=== PATIENT | female | born 1995 | race Caucasian/White ===

== ENCOUNTER 2017-03-04 15:37 | Inpatient (IN) | payer MEDICAID ==
[2017-03-04] MEDS: Lactated Ringers 1,000 ML IV SCH ×3 (15:58→17:59)
[2017-03-04] MEDS ORDERED: Lidocaine 1% 50 ML MDV INJECT PRN (16:02)
[2017-03-04] MEDS ORDERED: Misoprostol 200 MCG Tab PO PRN (16:02)
[2017-03-04] MEDS ORDERED: Sodium Chloride 0.9% 2.5 ML Syringe FLUSH PRN (16:02)
[2017-03-04] MEDS ORDERED: Butorphanol 1 MG/ML SDV IVPUSH PRN (16:02)
[2017-03-04] MEDS ORDERED: Nalbuphine 10 MG/1 ML Vial IVPUSH PRN (16:02)
[2017-03-04] MEDS ORDERED: Sodium Chloride 0.9% 10 ML Syringe FLUSH PRN (16:02)
[2017-03-04] MEDS ORDERED: Water For Irrigation,Sterile 1,000 ML Container IRR PRN (16:02)
[2017-03-04] MEDS ORDERED: Carboprost Tromethamine 250 MCG/1 ML Amp IM PRN (16:02)
[2017-03-04] MEDS ORDERED: Methylergonovine 0.2 MG/1 ML Amp IM PRN ×2 (16:02→21:27)
[2017-03-04] MEDS ORDERED: Ampicillin 2 GM in Sodium Chloride 0.9% 100 ML IV ONE (16:15)
[2017-03-04] MEDS ORDERED: Oxytocin/0.9 % Sodium Chloride 30 UNIT/500 ML BAG IV SCH (16:15)
[2017-03-04] MEDS ORDERED: Betamethasone Acetate/Betamethasone Sod Phosphate 30 MG/5 ML MDV IM ONE (16:36)
[2017-03-04] MEDS ORDERED: fentaNYL 100 MCG/2 ML SDV ONE (16:50)
[2017-03-04] MEDS ORDERED: Ropivacaine 0.2% 2 MG/ML 20 ML SDV ONE (16:50)
[2017-03-04] MEDS ORDERED: Ropivacaine HCl/PF 100 ML ONE (16:50)
--- NOTE | 2017-03-04 16:58 | PCM.PREANE ---
Preanesthetic Assessment - Anesthesia/Transfusion/Family Hx Anesthesia History: No Prior Anesthesia Family History of Anesthesia Reaction: No - Review of Systems Other: Reports: None - Physical Assessment Height: 5 ft 4 in Weight: 90.718 kg ASA Class: 2 Mental Status: Alert & Oriented x3 Airway Class: Mallampati = 2 Thyro-Mental Finger Breadths: 3 Mouth Opening Finger Breadths: 3 ROM/Head Extension: Full - Lab Values: Laboratory Last Values WBC 17.82 K/uL (4.0-11.0) H 03/04/17 16:11 RBC 4.60 M/uL (4.30-5.90) 03/04/17 16:11 Hgb 13.6 g/dL (12.0-16.0) 03/04/17 16:11 Hct 40.3 % (36.0-46.0) 03/04/17 16:11 MCV 87.6 fL (80.0-98.0) 03/04/17 16:11 MCH 29.6 pg (27.0-32.0) 03/04/17 16:11 MCHC 33.7 g/dL (31.0-37.0) 03/04/17 16:11 RDW Std Deviation 44.4 fl (28.0-62.0) 03/04/17 16:11 RDW Coeff of [place]ma 14 % (11.0-15.0) 03/04/17 16:11 Plt Count 308 K/uL (150-400) 03/04/17 16:11 MPV 11.20 fL (7.40-12.00) 03/04/17 16:11 Nucleated RBC % 0.0 /100WBC 03/04/17 16:11 Nucleated RBCs # 0 K/uL 03/04/17 16:11 - Allergies Allergies/Adverse Reactions: Allergies Allergy/AdvReac Type Severity Reaction Status Date / Time No Known Allergies Allergy Verified 02/28/17 23:37 - Blood Blood Available: Yes Product(s) Available: PRBC - Acknowledgements Anesthesia Type Planned: Epidural Pt an Appropriate Candidate for the Planned Anesthesia: Yes Alternatives and Risks of Anesthesia Discussed w Pt/Guardian: Yes Pt/Guardian Understands and Agrees with Anesthesia Plan: Yes PreAnesthesia Questionnaire - CURRENT (IN HOUSE) MEDS Current Meds: Current Medications Butorphanol Tartrate (Stadol) 1 mg IVPUSH Q1H PRN PRN Reason: Pain Last Admin: 03/04/17 16:23 Dose: 1 mg Carboprost Tromethamine (Hemabate Ds) 250 mcg IM ASDIRECTED PRN PRN Reason: Post Hemorrhage Lactated Ringer's (Ringers, Lactated) 1,000 mls @ 150 mls/hr IV ASDIRECTED [facility] Last Admin: 03/04/17 16:55 Dose: 999 mls/hr Oxytocin/Sodium Chloride (Oxytocin 30 Unit/500 Ml-Ns) 30 unit in 500 mls @ 999 mls/hr IV TITRATE [facility] Ampicillin Sodium 1 gm/ Sodium (Chloride) 50 mls @ 100 mls/hr IV Q4H [facility] Lidocaine HCl (Xylocaine 1%) 50 ml INJECT .ONCE PRN PRN Reason: Laceration repair Methylergonovine Maleate (Methergine) 0.2 mg IM ASDIRECTED PRN PRN Reason: Post Hemorrhage Misoprostol (Cytotec) 200 mcg PO .ONCE PRN PRN Reason: Post Hemorrhage Nalbuphine HCl (Nubain) 10 mg IVPUSH Q1H PRN PRN Reason: Pain (severe 7-10) Sodium Chloride (Saline Flush) 10 ml FLUSH ASDIRECTED PRN PRN Reason: Keep Vein Open Sodium Chloride (Saline Flush) 2.5 ml FLUSH ASDIRECTED PRN PRN Reason: Keep Vein Open Sterile Water (Sterile Water For Irrigation) 1,000 ml IRR ASDIRECTED PRN PRN Reason: delivery Discontinued Medications Betamethasone Acet/Betameth SodPhos (Celestone Soluspan 6 Mg/Ml) 12 mg IM ONETIME ONE Stop: 03/04/17 16:37 Fentanyl (Sublimaze) Confirm Administered Dose 200 mcg .ROUTE .[facility]-MED ONE Stop: 03/04/17 16:51 Ampicillin Sodium 2 gm/ Sodium (Chloride) 100 mls @ 200 mls/hr IV ONETIME ONE Stop: 03/04/17 16:44 Last Admin: 03/04/17 16:40 Dose: 200 mls/hr Ropivacaine (Naropin 0.2%) Confirm Administered Dose 100 mls @ as directed .ROUTE .[facility]-MED ONE Stop: 03/04/17 16:51 Ropivacaine (Naropin 0.2%) Confirm Administered Dose 20 ml .ROUTE .[facility] ONE Stop: 03/04/17 16:51
[2017-03-04] MEDS ORDERED: Ampicillin 1 GM in Sodium Chloride 0.9% 50 ML IV SCH (20:00)
[2017-03-04] MEDS ORDERED: Docusate Sodium 100 MG Cap PO PRN (21:27)
[2017-03-04] MEDS ORDERED: Benzocaine/Menthol 20%-0.5% Spray 78 GM Cannister TOP PRN (21:27)
[2017-03-04] MEDS ORDERED: Witch Hazel Medicated Pads 40/Jar TOP PRN (21:27)
[2017-03-04] MEDS ORDERED: Lanolin 100% Cream 7 GM Tube TOP PRN (21:27)
[2017-03-04] MEDS ORDERED: Bisacodyl 10 MG Supp RECTAL PRN (21:27)
[2017-03-04] MEDS ORDERED: Ibuprofen 800 MG Tab PO PRN (21:27)
[2017-03-04] MEDS ORDERED: Acetaminophen 500 MG Tab PO PRN (21:27)
[2017-03-04] MEDS ORDERED: oxyCODONE 5 MG Tab PO PRN (21:27)
--- NOTE | 2017-03-05 01:31 | OR ---
SURGEON: Farzana Mirza M.D. DATE OF PROCEDURE: 03/04/2017 PREOPERATIVE DIAGNOSIS: 36 and 1/7th week intrauterine , labor. POSTOPERATIVE DIAGNOSIS: 36 and 1/7th week intrauterine , labor. PROCEDURES: Ampicillin group B strep prophylaxis, spontaneous vaginal delivery, repair of first-degree laceration. ANESTHESIA: Epidural. ESTIMATED BLOOD LOSS: Less than 300 mL. FINDINGS: Live born male. score 9 and 9. Weighing 2405 grams. Placenta delivered spontaneously, Schultze intact with 3 vessels. First-degree perineal laceration was repaired. COMPLICATIONS: None known. DISPOSITION: Mother and baby are in LDRP in good condition. BRIEF HISTORY: This is a 21-year-old female, G1, P0. She presents at 36 and 1/7th weeks' gestation in active spontaneous labor. She is unknown group B strep status, therefore ampicillin was initiated. She received 2 doses prior to delivery. She had category 1 with episodes of category 2 heart tones throughout labor. She progressed to complete. She did receive an epidural for pain control. She had spontaneous rupture of membranes prior to arrival at the hospital. DESCRIPTION OF PROCEDURE: With the patient in dorsal lithotomy position, the patient pushed over 20-minute time period to 5+ station, at which time the head was delivered spontaneously and atraumatically over the perineum with support with subsequent delivery of the 's shoulders and body without any difficulty. The was bulb suctioned by nose and mouth. The was handed to the mother in the presence of the nurse attending delivery. The infant was a liveborn male, score 9 and 9, weight is 2405 grams. After the cord had ceased to pulsate, it was doubly clamped and cut. Cord blood was collected for cord ABGs as well as routine cord blood sampling. Pitocin was initiated after delivery of the to assist with delivery of the placenta, which was delivered spontaneously, Schultze intact with 3 vessels at the 27-minute time benjamin. Upon inspection of the pelvis and perineum, there were no periurethral, vaginal sidewall, cervical, or rectal lacerations. There was a tiny first-degree perineal laceration at the 5 o'clock position. 2-0 Caprosyn was utilized in a [id number] fashion for the superficial vaginal tissue and a single subcuticular suture for the skin. Final sponge, needle, and instrument counts were correct. There were no known complications. The infant and mother remained in LDRP in good condition. WILLIE SWAN /[id number]
--- NOTE | 2017-03-05 21:32 | PCM.PN ---
- General Info Date of Service: 03/05/17 Admission Dx/Problem (Free Text): 21yo P1 s/p Normal vaginal delivery Functional Status: Reports: Tolerating Diet, Ambulating, Urinating - Review of Systems General: Reports: No Symptoms HEENT: Reports: No Symptoms Pulmonary: Reports: No Symptoms Cardiovascular: Reports: No Symptoms Gastrointestinal: Reports: No Symptoms Genitourinary: Reports: No Symptoms Musculoskeletal: Reports: No Symptoms - Patient Data Vitals - Most Recent: Last Vital Signs Temp 36.8 C 03/05/17 16:00 Pulse 88 03/05/17 16:00 Resp 17 03/05/17 16:00 BP 110/80 03/05/17 16:00 Pulse Ox 96 03/05/17 16:00 Weight - Most Recent: 90.718 kg Lab Results Last 24 Hours: Laboratory Results - last 24 hr 03/05/17 Range/Units 05:41 Hgb 12.3 (12.0-16.0) g/dL Hct 36.8 (36.0-46.0) % Med Orders - Current: Current Medications Acetaminophen (Tylenol Extra Strength) 1,000 mg PO Q4H PRN PRN Reason: Pain Benzocaine/Menthol (Dermoplast Pain Relief 20%-0.5% [place]) 78 gm TOP ASDIRECTED PRN PRN Reason: Perineal Comfort Measure Last Admin: 03/04/17 23:57 Dose: 1 can Bisacodyl (Dulcolax) 10 mg RECTAL .ONCE PRN PRN Reason: Constipation Docusate Sodium (Colace) 100 mg PO BID PRN PRN Reason: Constipation Last Admin: 03/04/17 23:58 Dose: 100 mg Emollient Ointment (Lansinoh Hpa) 0 gm TOP ASDIRECTED PRN PRN Reason: Sore Nipples Last Admin: 03/04/17 23:57 Dose: 1 tube Ibuprofen (Motrin) 800 mg PO Q6H PRN PRN Reason: Pain Last Admin: 03/04/17 23:58 Dose: 800 mg Methylergonovine Maleate (Methergine) 0.2 mg IM .ONCE PRN PRN Reason: Excessive Vaginal Bleeding Oxycodone HCl (Oxycodone) 5 mg PO Q2H PRN PRN Reason: Pain Witch Raquel (Tucks) 1 pad TOP ASDIRECTED PRN PRN Reason: comfort care Last Admin: 03/04/17 23:58 Dose: 1 tub Discontinued Medications Betamethasone Acet/Betameth SodPhos (Celestone Soluspan 6 Mg/Ml) 12 mg IM ONETIME ONE Stop: 03/04/17 16:37 Last Admin: 03/04/17 17:22 Dose: 12 mg Butorphanol Tartrate (Stadol) 1 mg IVPUSH Q1H PRN PRN Reason: Pain Last Admin: 03/04/17 16:23 Dose: 1 mg Carboprost Tromethamine (Hemabate Ds) 250 mcg IM ASDIRECTED PRN PRN Reason: Post Hemorrhage Fentanyl (Sublimaze) Confirm Administered Dose 200 mcg .ROUTE .[facility] ONE Stop: 03/04/17 16:51 Ampicillin Sodium 2 gm/ Sodium (Chloride) 100 mls @ 200 mls/hr IV ONETIME ONE Stop: 03/04/17 16:44 Last Admin: 03/04/17 16:40 Dose: 200 mls/hr Lactated Ringer's (Ringers, Lactated) 1,000 mls @ 150 mls/hr IV ASDIRECTED [facility] Last Admin: 03/04/17 17:59 Dose: 999 mls/hr Oxytocin/Sodium Chloride (Oxytocin 30 Unit/500 Ml-Ns) 30 unit in 500 mls @ 999 mls/hr IV TITRATE [facility] Last Admin: 03/04/17 20:48 Dose: 999 mls/hr Ampicillin Sodium 1 gm/ Sodium (Chloride) 50 mls @ 100 mls/hr IV Q4H [facility] Last Admin: 03/04/17 19:51 Dose: 100 mls/hr Ropivacaine (Naropin 0.2%) Confirm Administered Dose 100 mls @ as directed .ROUTE .[facility] ONE Stop: 03/04/17 16:51 Lidocaine HCl (Xylocaine 1%) 50 ml INJECT .ONCE PRN PRN Reason: Laceration repair Methylergonovine Maleate (Methergine) 0.2 mg IM ASDIRECTED PRN PRN Reason: Post Hemorrhage Misoprostol (Cytotec) 200 mcg PO .ONCE PRN PRN Reason: Post Hemorrhage Nalbuphine HCl (Nubain) 10 mg IVPUSH Q1H PRN PRN Reason: Pain (severe 7-10) Ropivacaine (Naropin 0.2%) Confirm Administered Dose 20 ml .ROUTE .[facility] ONE Stop: 03/04/17 16:51 Sodium Chloride (Saline Flush) 10 ml FLUSH ASDIRECTED PRN PRN Reason: Keep Vein Open Sodium Chloride (Saline Flush) 2.5 ml FLUSH ASDIRECTED PRN PRN Reason: Keep Vein Open Sterile Water (Sterile Water For Irrigation) 1,000 ml IRR ASDIRECTED PRN PRN Reason: delivery Last Admin: 03/04/17 20:45 Dose: 1,000 ml - Exam General: Alert Lungs: Clear to Auscultation Cardiovascular: Regular Rate, Regular Rhythm GI/Abdominal Exam: Normal Bowel Sounds (Female) Exam: Normal External Exam (Uterus is firm , well contracted , minimum lochia ) Extremities: Normal Inspection, No Pedal Edema Psy/Mental Status: Alert - Problem List & Annotations (1) Vaginal delivery SNOMED Code(s): 725488068 Code(s): O80 - ENCOUNTER FOR FULL-TERM UNCOMPLICATED DELIVERY Status: Acute Priority: High Current Visit: Yes Onset Date: ~03/04/17 (2) Vaginal delivery SNOMED Code(s): 475823790 Code(s): O80 - ENCOUNTER FOR FULL-TERM UNCOMPLICATED DELIVERY Status: Acute Current Visit: Yes - Problem List Review Problem List Initiated/Reviewed/Updated: Yes - Assessment Assessment:: 21yo now P1 s/p vaginal delivery, stable no complains - Plan Plan:: Ambulate Regular diet Pain control as needed Encourage Discharge home tomorrow
--- NOTE | 2017-03-06 05:44 | PCM.PN ---
- General Info Date of Service: 03/06/17 Admission Dx/Problem (Free Text): 21yo P1 s/p Normal vaginal delivery , PPD2 Subjective Update: Patient denies any problem , minimal lochia. she is ambulating , urinating and tolerating regular diet Functional Status: Reports: Pain Controlled - Review of Systems General: Reports: No Symptoms HEENT: Reports: No Symptoms Pulmonary: Reports: No Symptoms Cardiovascular: Reports: No Symptoms Gastrointestinal: Reports: No Symptoms Genitourinary: Reports: No Symptoms Musculoskeletal: Reports: No Symptoms Skin: Reports: No Symptoms Neurological: Reports: No Symptoms - Patient Data Vitals - Most Recent: Last Vital Signs Temp 36.6 C 03/05/17 22:42 Pulse 80 03/05/17 22:42 Resp 18 03/05/17 22:42 BP 110/84 03/05/17 22:42 Pulse Ox 98 03/05/17 22:42 Weight - Most Recent: 90.718 kg Lab Results Last 24 Hours: Laboratory Results - last 24 hr 03/05/17 Range/Units 05:41 Hgb 12.3 (12.0-16.0) g/dL Hct 36.8 (36.0-46.0) % Med Orders - Current: Current Medications Acetaminophen (Tylenol Extra Strength) 1,000 mg PO Q4H PRN PRN Reason: Pain Benzocaine/Menthol (Dermoplast Pain Relief 20%-0.5% [place]) 78 gm TOP ASDIRECTED PRN PRN Reason: Perineal Comfort Measure Last Admin: 03/04/17 23:57 Dose: 1 can Bisacodyl (Dulcolax) 10 mg RECTAL .ONCE PRN PRN Reason: Constipation Docusate Sodium (Colace) 100 mg PO BID PRN PRN Reason: Constipation Last Admin: 03/04/17 23:58 Dose: 100 mg Emollient Ointment (Lansinoh Hpa) 0 gm TOP ASDIRECTED PRN PRN Reason: Sore Nipples Last Admin: 03/04/17 23:57 Dose: 1 tube Ibuprofen (Motrin) 800 mg PO Q6H PRN PRN Reason: Pain Last Admin: 03/04/17 23:58 Dose: 800 mg Methylergonovine Maleate (Methergine) 0.2 mg IM .ONCE PRN PRN Reason: Excessive Vaginal Bleeding Oxycodone HCl (Oxycodone) 5 mg PO Q2H PRN PRN Reason: Pain Witch Raquel (Tucks) 1 pad TOP ASDIRECTED PRN PRN Reason: comfort care Last Admin: 03/04/17 23:58 Dose: 1 tub Discontinued Medications Betamethasone Acet/Betameth SodPhos (Celestone Soluspan 6 Mg/Ml) 12 mg IM ONETIME ONE Stop: 03/04/17 16:37 Last Admin: 03/04/17 17:22 Dose: 12 mg Butorphanol Tartrate (Stadol) 1 mg IVPUSH Q1H PRN PRN Reason: Pain Last Admin: 03/04/17 16:23 Dose: 1 mg Carboprost Tromethamine (Hemabate Ds) 250 mcg IM ASDIRECTED PRN PRN Reason: Post Hemorrhage Fentanyl (Sublimaze) Confirm Administered Dose 200 mcg .ROUTE .[facility]-MED ONE Stop: 03/04/17 16:51 Ampicillin Sodium 2 gm/ Sodium (Chloride) 100 mls @ 200 mls/hr IV ONETIME ONE Stop: 03/04/17 16:44 Last Admin: 03/04/17 16:40 Dose: 200 mls/hr Lactated Ringer's (Ringers, Lactated) 1,000 mls @ 150 mls/hr IV ASDIRECTED [facility] Last Admin: 03/04/17 17:59 Dose: 999 mls/hr Oxytocin/Sodium Chloride (Oxytocin 30 Unit/500 Ml-Ns) 30 unit in 500 mls @ 999 mls/hr IV TITRATE [facility] Last Admin: 03/04/17 20:48 Dose: 999 mls/hr Ampicillin Sodium 1 gm/ Sodium (Chloride) 50 mls @ 100 mls/hr IV Q4H [facility] Last Admin: 03/04/17 19:51 Dose: 100 mls/hr Ropivacaine (Naropin 0.2%) Confirm Administered Dose 100 mls @ as directed .ROUTE .[facility]-MED ONE Stop: 03/04/17 16:51 Lidocaine HCl (Xylocaine 1%) 50 ml INJECT .ONCE PRN PRN Reason: Laceration repair Methylergonovine Maleate (Methergine) 0.2 mg IM ASDIRECTED PRN PRN Reason: Post Hemorrhage Misoprostol (Cytotec) 200 mcg PO .ONCE PRN PRN Reason: Post Hemorrhage Nalbuphine HCl (Nubain) 10 mg IVPUSH Q1H PRN PRN Reason: Pain (severe 7-10) Ropivacaine (Naropin 0.2%) Confirm Administered Dose 20 ml .ROUTE .STK-MED ONE Stop: 03/04/17 16:51 Sodium Chloride (Saline Flush) 10 ml FLUSH ASDIRECTED PRN PRN Reason: Keep Vein Open Sodium Chloride (Saline Flush) 2.5 ml FLUSH ASDIRECTED PRN PRN Reason: Keep Vein Open Sterile Water (Sterile Water For Irrigation) 1,000 ml IRR ASDIRECTED PRN PRN Reason: delivery Last Admin: 03/04/17 20:45 Dose: 1,000 ml - Exam General: Alert Lungs: Clear to Auscultation Cardiovascular: Regular Rate, Regular Rhythm GI/Abdominal Exam: Normal Bowel Sounds (Uterus is firm ) Extremities: No Pedal Edema Psy/Mental Status: Alert - Problem List & Annotations (1) delivery SNOMED Code(s): 843804571, 142808342 Code(s): O60.10X0 - LABOR W DELIVERY, UNSP TRIMESTER, UNSP Status: Acute Priority: Medium Current Visit: Yes (2) delivery SNOMED Code(s): 633377234, 781918370 Code(s): O60.10X0 - LABOR W DELIVERY, UNSP TRIMESTER, UNSP Status: Acute Priority: Medium Current Visit: Yes - Problem List Review Problem List Initiated/Reviewed/Updated: Yes - My Orders Last 24 Hours: My Active Orders 03/06/17 21:35 Ready for Discharge [RC] PER UNIT ROUTINE - Assessment Assessment:: 21yo now P1 s/p vaginal delivery, stable no complains , PPD2 - Plan Plan:: Ambulate Regular diet Pain control as needed Encourage Discharge home today
--- NOTE | 2017-03-06 05:52 | PCM.DCSUM1 ---
Discharge Summary - Hospital Course Free Text/Narrative:: Patient admitted in labor. had a spontaneous vaginal delivery uncomplicated - Discharge Data Discharge Date: 03/06/17 Discharge Disposition: Home, Self-Care 01 Preliminary Cause of *Q: Other_Special Instruction Condition: Stable - Discharge Diagnosis/Problem(s) (1) delivery SNOMED Code(s): 361106478, 617328593 ICD Code: O60.10X0 - LABOR W DELIVERY, UNSP TRIMESTER, UNSP Status: Acute Priority: Medium Current Visit: Yes (2) delivery SNOMED Code(s): 372458359, 483828600 ICD Code: O60.10X0 - LABOR W DELIVERY, UNSP TRIMESTER, UNSP Status: Acute Priority: Medium Current Visit: Yes - Patient Instructions Diet: Regular Diet as Tolerated Activity: As Tolerated Showering/Bathing: May Shower Other/Special Instructions: Nothing in the vagina for 6 weeks. no sex , no tampoons - Discharge Plan Home Medications: Home Meds Acetaminophen [Tylenol Extra Strength] 500 mg PO Q4H PRN 03/06/17 [Rx] Patient Handouts: Vaginal Delivery Referrals: [facility] [Outside] Rosalba Marie MD [Physician] - 04/15/17 1:45 pm - Patient Data Vitals - Most Recent: Last Vital Signs Temp 36.6 C 03/05/17 22:42 Pulse 80 03/05/17 22:42 Resp 18 03/05/17 22:42 BP 110/84 03/05/17 22:42 Pulse Ox 98 03/05/17 22:42 Weight - Most Recent: 90.718 kg Lab Results - Last 24 hrs: Laboratory Results - last 24 hr 03/05/17 Range/Units 05:41 Hgb 12.3 (12.0-16.0) g/dL Hct 36.8 (36.0-46.0) % Med Orders - Current: Current Medications Acetaminophen (Tylenol Extra Strength) 1,000 mg PO Q4H PRN PRN Reason: Pain Benzocaine/Menthol (Dermoplast Pain Relief 20%-0.5% [place]) 78 gm TOP ASDIRECTED PRN PRN Reason: Perineal Comfort Measure Last Admin: 03/04/17 23:57 Dose: 1 can Bisacodyl (Dulcolax) 10 mg RECTAL .ONCE PRN PRN Reason: Constipation Docusate Sodium (Colace) 100 mg PO BID PRN PRN Reason: Constipation Last Admin: 03/04/17 23:58 Dose: 100 mg Emollient Ointment (Lansinoh Hpa) 0 gm TOP ASDIRECTED PRN PRN Reason: Sore Nipples Last Admin: 03/04/17 23:57 Dose: 1 tube Ibuprofen (Motrin) 800 mg PO Q6H PRN PRN Reason: Pain Last Admin: 03/04/17 23:58 Dose: 800 mg Methylergonovine Maleate (Methergine) 0.2 mg IM .ONCE PRN PRN Reason: Excessive Vaginal Bleeding Oxycodone HCl (Oxycodone) 5 mg PO Q2H PRN PRN Reason: Pain Witch Raquel (Tucks) 1 pad TOP ASDIRECTED PRN PRN Reason: comfort care Last Admin: 03/04/17 23:58 Dose: 1 tub Discontinued Medications Betamethasone Acet/Betameth SodPhos (Celestone Soluspan 6 Mg/Ml) 12 mg IM ONETIME ONE Stop: 03/04/17 16:37 Last Admin: 03/04/17 17:22 Dose: 12 mg Butorphanol Tartrate (Stadol) 1 mg IVPUSH Q1H PRN PRN Reason: Pain Last Admin: 03/04/17 16:23 Dose: 1 mg Carboprost Tromethamine (Hemabate Ds) 250 mcg IM ASDIRECTED PRN PRN Reason: Post Hemorrhage Fentanyl (Sublimaze) Confirm Administered Dose 200 mcg .ROUTE .[facility]-MED ONE Stop: 03/04/17 16:51 Ampicillin Sodium 2 gm/ Sodium (Chloride) 100 mls @ 200 mls/hr IV ONETIME ONE Stop: 03/04/17 16:44 Last Admin: 03/04/17 16:40 Dose: 200 mls/hr Lactated Ringer's (Ringers, Lactated) 1,000 mls @ 150 mls/hr IV ASDIRECTED [facility] Last Admin: 03/04/17 17:59 Dose: 999 mls/hr Oxytocin/Sodium Chloride (Oxytocin 30 Unit/500 Ml-Ns) 30 unit in 500 mls @ 999 mls/hr IV TITRATE [facility] Last Admin: 03/04/17 20:48 Dose: 999 mls/hr Ampicillin Sodium 1 gm/ Sodium (Chloride) 50 mls @ 100 mls/hr IV Q4H [facility] Last Admin: 03/04/17 19:51 Dose: 100 mls/hr Ropivacaine (Naropin 0.2%) Confirm Administered Dose 100 mls @ as directed .ROUTE .[facility] ONE Stop: 03/04/17 16:51 Lidocaine HCl (Xylocaine 1%) 50 ml INJECT .ONCE PRN PRN Reason: Laceration repair Methylergonovine Maleate (Methergine) 0.2 mg IM ASDIRECTED PRN PRN Reason: Post Hemorrhage Misoprostol (Cytotec) 200 mcg PO .ONCE PRN PRN Reason: Post Hemorrhage Nalbuphine HCl (Nubain) 10 mg IVPUSH Q1H PRN PRN Reason: Pain (severe 7-10) Ropivacaine (Naropin 0.2%) Confirm Administered Dose 20 ml .ROUTE .[place] ONE Stop: 03/04/17 16:51 Sodium Chloride (Saline Flush) 10 ml FLUSH ASDIRECTED PRN PRN Reason: Keep Vein Open Sodium Chloride (Saline Flush) 2.5 ml FLUSH ASDIRECTED PRN PRN Reason: Keep Vein Open Sterile Water (Sterile Water For Irrigation) 1,000 ml IRR ASDIRECTED PRN PRN Reason: delivery Last Admin: 03/04/17 20:45 Dose: 1,000 ml *Q Meaningful Use (DIS) - VTE *Q VTE Criteria *Q: - Stroke *Q Stroke Criteria *Q: - AMI *Q AMI Criteria *Q:
[2017-03-06 08:04] VITALS: BP 134/89
== END 2017-03-06 09:45 | disposition home or self-care (01) | DRG 775 ==
LOC: MW.OBCHECK 15:37 → MW.OB 15:45 → MW.OBCHECK 16:01 → MW.OB 16:03 → OBSVTOIN 20:47 → MW.OB 03-05 03:23
PROVIDERS: ADMIT Obstetrics & Gynecology; ATTEND Obstetrics & Gynecology
PROC: 10E0XZZ Delivery of Products of Conception, External Approach (ICD-10-PCS; principal; 2017-03-04)
PROC: 0HQ9XZZ Repair Perineum Skin, External Approach (ICD-10-PCS; 2017-03-04)
DX: O42.013 Preterm premature rupture of membranes, onset of labor within 24 hours of rupture, third trimester (principal); O70.0 First degree perineal laceration during delivery; Z3A.36 36 weeks gestation of pregnancy; Z37.0 Single live birth
CPT/HCPCS: 36415; 59025; 59409; 85014; 85018; 85027; 86850; 86900; 86901; 88307; A9270-GY; J0290; J0595; J0702; J2590; J2795; J3010; J7030; J7050; J7120